=== PATIENT | female | born 1990 | race Caucasian/White ===

== ENCOUNTER 2017-11-19 23:00 | Emergency (ER) | payer OTHER ==
[2017-11-19 23:08] VITALS: RESP 16
[2017-11-19] MEDS ORDERED: NS 1,000 ML IV ONE (23:40)
[2017-11-19 23:48] LABS: PLATELET COUNT 247 10^3/uL (150-400)
[2017-11-20] MEDS ORDERED: IOPAMIDOL (ISOVUE-300) 100 ML BTL ONE (01:06)
--- NOTE | 2017-11-20 01:16 | EDPHY ---
H & P Stated Complaint: RLQ abd pain since Thursday - Personal History LMP (Females 10-55): 8-14 Days Ago Current Tetanus/Diphtheria Vaccine: Yes Current Tetanus Diphtheria and Acellular Pertussis (TDAP): Yes - Medical/Surgical History Hx Asthma: Yes Hx Chronic Respiratory Disease: No Hx Diabetes: No Hx Cardiac Disease: No Hx Renal Disease: No Hx Cirrhosis: No Hx Alcoholism: No Hx HIV/AIDS: No Hx Splenectomy or Spleen Trauma: No Other PMH: denies - Social History Smoking Status: Current every day smoker Time Seen by Provider: 11/19/17 23:21 HPI/ROS: Chief complaint: Abdominal pain History of present illness: 26-year-old female presents to the emergency department for abdominal pain. She reports the onset of symptoms approximately 3-4 days ago. Symptoms have been persistent. Most pronounced in the right, lower aspect of the abdomen. She denies precipitating factors. Denies alleviating factors. No significant vomiting or diarrhea. Mild discomfort with urination. No vaginal discharge or bleeding. No fevers. Review of systems: A 10 point review of systems was obtained and other than described above was negative (Derrick Kam) - Physical Exam Exam: General Appearance: Alert, nontoxic. Eyes: Pupils equal and round no pallor or injection. ENT, Mouth: Mucous membranes moist. Respiratory: There are no retractions, lungs are clear to auscultation. Cardiovascular: Regular rate and rhythm. Gastrointestinal: Bowel sounds normal. Abdomen soft, nondistended. Tenderness in McBurney's point. Neurological: Alert and oriented. Strength and sensation intact and symmetrical. Skin: Warm and dry, no rashes. Musculoskeletal: Neck is supple non tender. Extremities are symmetrical, full range of motion. Psychiatric: Patient is oriented X 3, there is no agitation. (Derrick Kam) Constitutional: Initial Vital Signs Temperature (C) 36.6 C 11/19/17 23:05 Heart Rate 58 L 11/19/17 23:05 Respiratory Rate 16 11/19/17 23:05 Blood Pressure 118/81 H 11/19/17 23:05 O2 Sat (%) 99 11/19/17 23:05 O2 Delivery Mode Room Air Allergies/Adverse Reactions: nitazoxanide [From Alinia] Allergy (Verified 11/19/17 23:08) Home Medications: Medication Instructions Recorded NK [No Known Home Meds] 11/19/17 Medical Decision Making ED Course/Re-evaluation: 0207AM: Patient was signed over to me at 1:00 a.m.. Follow-up patient CT scan to rule out appendicitis given her right lower quadrant abdominal pain. Earlier in the evening she had an ultrasound did not reveal any evidence of ovarian pathology. She had right lower quadrant abdominal pain the past 4-5 days. She states now on re-evaluation at 2:00 a.m. She is feeling much better. I did reexamine her abdomen is soft nontender she has no right lower quadrant abdominal pain on exam but she did receive pain medication here. I went over CT results with her we are unable to visualize her appendix. Were unable to see her appendix on CT or ultrasound this evening. I described this to her and that we have not officially rule out acute appendicitis. She understands this. I have given her the option about being admitted overnight for observation and for abdominal exam changes we may need to proceed surgery to look for her appendix or reimage her. However she has declined hospital admission and she would like to be discharged. However she understands that we have not ruled out acute appendicitis and that if she develops recurrence of abdominal pain she needs to immediately return to the emergency room. If she starts having fever vomiting or abdominal pain she needs return she understands this. She understands we did not see her appendix today and she did come in with right lower quadrant pain. Given that she does not want to be admitted overnight hour allow her to be discharged she is reliable person she understands the risk of leaving without fully diagnose thing whether she has appendicitis or not. However she is reliable and she understands that she develops worsening abdominal pain fever vomiting or does not feel well she needs return immediately to the emergency room for further evaluation. She has declined hospital observation this evening. Return precautions discussed she understands. (Tono Wise) - Data Points Laboratory Results: Laboratory Results 11/19/17 23:30 11/19/17 23:30 11/20/17 11/19/17 11/19/17 00:45 23:30 23:30 WBC RBC Hgb Hct MCV MCH MCHC RDW Plt Count MPV Neut % (Auto) Lymph % (Auto) [place]ukes % (Auto) Eos % (Auto) Baso % (Auto) Nucleat RBC Rel Count Absolute Neuts (auto) Absolute Lymphs (auto) Absolute Monos (auto) Absolute Eos (auto) Absolute Basos (auto) Absolute Nucleated RBC Immature Gran % Immature Gran # Sodium 142 mEq/L mEq/L (135-145) Potassium 3.9 mEq/L mEq/L (3.5-5.2) Chloride 106 mEq/L mEq/L (97-110) Carbon Dioxide 24 mEq/l mEq/l (22-31) Anion Gap 12 mEq/L mEq/L (8-16) BUN 10 mg/dL mg/dL (7-23) Creatinine 0.6 mg/dL mg/dL (0.6-1.0) Estimated GFR > 60 Glucose 74 mg/dL mg/dL (70-100) Calcium 9.9 mg/dL mg/dL (8.5-10.4) Total Bilirubin 0.5 mg/dL mg/dL (0.1-1.4) Conjugated Bilirubin 0.3 mg/dL mg/dL (0.0-0.5) Unconjugated Bilirubin 0.2 mg/dL mg/dL (0.0-1.1) AST 28 IU/L IU/L (14-46) ALT 23 IU/L IU/L (9-52) Alkaline Phosphatase 66 IU/L IU/L (38-126) Total Protein 7.9 g/dL g/dL (6.3-8.2) Albumin 4.7 g/dL g/dL (3.5-5.0) Lipase 115 IU/L IU/L (23-300) Beta HCG, Qual NEGATIVE Urine Color COLORLESS Urine Appearance CLEAR Urine pH 6.0 (5.0-7.5) Ur Specific [place] 1.001 L (1.002-1.030) Urine Protein NEGATIVE (NEGATIVE) Urine Ketones NEGATIVE (NEGATIVE) Urine Blood NEGATIVE (NEGATIVE) Urine Nitrate NEGATIVE (NEGATIVE) Urine Bilirubin NEGATIVE (NEGATIVE) Urine Urobilinogen NEGATIVE EU EU (0.2-1.0) Ur Leukocyte Esterase NEGATIVE (NEGATIVE) Urine RBC Not Reported Urine WBC Not Reported Ur Epithelial Cells TRACE /lpf /lpf (NONE-1+) Urine Glucose NEGATIVE (NEGATIVE) 11/19/17 23:30 WBC 10.00 10^3/uL H 10^3/uL (3.80-9.50) RBC 4.79 10^6/uL 10^6/uL (4.18-5.33) Hgb 15.2 g/dL g/dL (12.6-16.3) Hct 45.4 % % (38.0-47.0) MCV 94.8 fL fL (81.5-99.8) MCH 31.7 pg pg (27.9-34.1) MCHC 33.5 g/dL g/dL (32.4-36.7) RDW 12.1 % % (11.5-15.2) Plt Count 247 10^3/uL 10^3/uL (150-400) MPV 10.1 fL fL (8.7-11.7) Neut % (Auto) 51.6 % % (39.3-74.2) Lymph % (Auto) 36.9 % % (15.0-45.0) Dukes % (Auto) 9.2 % % (4.5-13.0) Eos % (Auto) 1.5 % % (0.6-7.6) Baso % (Auto) 0.6 % % (0.3-1.7) Nucleat RBC Rel Count 0.0 % % (0.0-0.2) Absolute Neuts (auto) 5.16 10^3/uL 10^3/uL (1.70-6.50) Absolute Lymphs (auto) 3.69 10^3/uL H 10^3/uL (1.00-3.00) Absolute Monos (auto) 0.92 10^3/uL H 10^3/uL (0.30-0.80) Absolute Eos (auto) 0.15 10^3/uL 10^3/uL (0.03-0.40) Absolute Basos (auto) 0.06 10^3/uL 10^3/uL (0.02-0.10) Absolute Nucleated RBC 0.00 10^3/uL 10^3/uL (0-0.01) Immature Gran % 0.2 % % (0.0-1.1) Immature Gran # 0.02 10^3/uL 10^3/uL (0.00-0.10) Sodium Potassium Chloride Carbon Dioxide Anion Gap BUN Creatinine Estimated GFR Glucose Calcium Total Bilirubin Conjugated Bilirubin Unconjugated Bilirubin AST ALT Alkaline Phosphatase Total Protein Albumin Lipase Beta HCG, Qual Urine Color Urine Appearance Urine pH Ur Specific [place] Urine Protein Urine Ketones Urine Blood Urine Nitrate Urine Bilirubin Urine Urobilinogen Ur Leukocyte Esterase Urine RBC Urine WBC Ur Epithelial Cells Urine Glucose Medications Given: Discontinued Medications Sodium Chloride (Ns) 1,000 mls @ 0 mls/hr IV EDNOW ONE; Wide Open PRN Reason: Protocol Stop: 11/19/17 23:41 Last Admin: 11/19/17 23:49 Dose: 1,000 mls Departure - Departure Disposition: Home, Routine, Self-Care Clinical Impression: Abdominal pain Qualifiers: Abdominal location: right lower quadrant Qualified Code(s): R10.31 - Right lower quadrant pain Condition: Good Instructions: Acute Abdominal Pain (ED) Additional Instructions: 1. We were unable to see her appendix. Be technically have not ruled out acute appendicitis. 2. If he develops worsening abdominal pain fever vomiting or you do not feel well you need to immediately return to the emergency room for recheck and re- examination. 3. Return immediately if you have worsening symptoms. Referrals: NONE *PRIMARY CARE P,. [Primary Care Provider] - As per Instructions [facility],. [Clinic] - As per Instructions
[2017-11-20 01:41] VITALS: O2SAT 97
[2017-11-20 02:18] VITALS: BP 120/73; PULSE 79; TEMP 98.1
== END 2017-11-20 02:17 | disposition home or self-care (01) ==
DX: R10.31 Right lower quadrant pain (principal); E86.9 Volume depletion, unspecified; F17.200 Nicotine dependence, unspecified, uncomplicated; J45.909 Unspecified asthma, uncomplicated
CPT/HCPCS: Q9967